=== PATIENT | male | born 1945 | race American Indian/Alaskan Native ===

== ENCOUNTER 2019-10-06 10:58 | Observation (INO) | payer MEDICARE ==
--- NOTE | 2019-10-06 11:26 | Emergency Department Report ---
ED GI Bleed HPI - General Chief complaint: GI Bleed Stated complaint: BLOOD IN STOOL Time Seen by Provider: 10/06/19 11:11 Source: patient Mode of arrival: Ambulatory Limitations: No Limitations - History of Present Illness Initial comments: Patient is a 74-year-old male presents emergency room with complaints of a GI bleed that began this morning around 10:30 AM. Patient states that he has had 3 episodes of bright red blood per rectum today. He states he has associated generalized weakness. He denies any diarrhea, abdominal pain, nausea, vomiting, chest pain, shortness of breath. Patient was evaluated in the emergency department in 2012 and had a GI bleed at that time secondary to diverticulosis and hemorrhoids. pt reports he has had no further bleeding episodes since 2012. he states his PCP started him on meloxicam and august secondary to arthritis in his neck. Patient has a past medical history of hypertension, hyperlipidemia, hypothyroid. he did not take his blood pressure medication today. - Related Data Home Medications Medication Instructions Recorded Confirmed Last Taken Levothyroxine [Synthroid] 137 mcg PO QAM 09/07/13 10/06/19 09/07/13 10:35 Simvastatin 20 mg PO QHS 09/07/13 10/06/19 09/06/13 Aspirin [Aspirin BABY CHEW TAB] 81 mg PO QDAY 10/06/19 10/06/19 Unknown Losartan [Cozaar] 50 mg PO QDAY 10/06/19 10/06/19 Unknown Allergies Allergy/AdvReac Type Severity Reaction Status Date / Time No Known Allergies Allergy Unverified 09/07/13 10:29 ED Review of Systems ROS: Stated complaint: BLOOD IN STOOL Other details as noted in HPI Comment: All other systems reviewed and negative ED Past Medical Hx - Past Medical History Hx Hypertension: Yes Hx Heart Attack/AMI: No Hx Congestive Heart Failure: No Hx Diabetes: No Hx Deep Vein Thrombosis: No Hx Pulmonary Embolism: No Hx Liver Disease: No Hx Renal Disease: No Hx Sickle Cell Disease: No Hx Arthritis: No Hx Seizures: No Hx Kidney Stones: No Hx Asthma: No Hx COPD: No Hx Tuberculosis: No Hx Dementia: No Hx HIV: No Additional medical history: Diverticulitis, THYROID - Surgical History Past Surgical History?: No Hx Coronary Stent: No Hx Pacemaker: No Hx Internal Defibrillator: No - Social History Smoking Status: Former Smoker Substance Use Type: None - Medications Home Medications: Home Medications Medication Instructions Recorded Confirmed Last Taken Type Levothyroxine [Synthroid] 137 mcg PO QAM 09/07/13 10/06/19 09/07/13 10:35 History Simvastatin 20 mg PO QHS 09/07/13 10/06/19 09/06/13 History Aspirin [Aspirin BABY CHEW TAB] 81 mg PO QDAY 10/06/19 10/06/19 Unknown History Losartan [Cozaar] 50 mg PO QDAY 10/06/19 10/06/19 Unknown History ED Physical Exam - General Limitations: No Limitations General appearance: alert, in no apparent distress - Head Head exam: Present: atraumatic, normocephalic - Eye Eye exam: Present: normal appearance - ENT ENT exam: Present: mucous membranes moist - Respiratory Respiratory exam: Present: normal lung sounds bilaterally. Absent: respiratory distress, wheezes, rales, rhonchi, stridor, chest wall tenderness, accessory muscle use, decreased breath sounds, prolonged expiratory - Cardiovascular Cardiovascular Exam: Present: regular rate, normal rhythm, normal heart sounds. Absent: systolic murmur, diastolic murmur, rubs, gallop - GI/Abdominal GI/Abdominal exam: Present: soft, normal bowel sounds. Absent: distended, tenderness, guarding, rebound, rigid - Rectal Rectal exam: Present: normal rectal tone, heme (+) stool, other (gross dark blood present, non thrombosed external hemorrhoid present ) - Neurological Exam Neurological exam: Present: alert, oriented X3 - Psychiatric Psychiatric exam: Present: normal affect, normal mood - Skin Skin exam: Present: warm, dry, intact ED Course Vital Signs 10/06/19 10/06/19 10/06/19 11:08 12:09 13:56 Temperature 98 F Pulse Rate 70 71 Respiratory 16 19 18 Rate Blood Pressure 165/66 Blood Pressure 123/91 [Right] O2 Sat by Pulse 97 98 Oximetry - Consultations Consultation #1: 10/06/19 13:[address] [facility] regarding pt and history, will consult on patient in the hospital. Consultation #2: 10/06/19 14:[address] Mcdowell, hospitalist who will admit pt to the hospital, will accept and resume care of patient, asked to write bridge orders to med surg ED Medical Decision Making - Lab Data Result diagrams: 10/06/19 11:51 10/06/19 11:51 Lab Results 10/06/19 10/06/19 10/06/19 Range/Units 11:51 11:51 11:51 WBC 3.6 L (4.5-11.0) K/mm3 RBC 4.35 (3.65-5.03) M/mm3 Hgb 13.4 (11.8-15.2) gm/dl Hct 40.1 (35.5-45.6) % MCV 92 (84-94) fl MCH 31 (28-32) pg MCHC 34 (32-34) % RDW 13.6 (13.2-15.2) % Plt Count 153 (140-440) K/mm3 Lymph % (Auto) 29.8 (13.4-35.0) % [place] % (Auto) 8.2 H (0.0-7.3) % Eos % (Auto) 1.0 (0.0-4.3) % Baso % (Auto) 0.6 (0.0-1.8) % Lymph # 1.1 L (1.2-5.4) K/mm3 [place] # 0.3 (0.0-0.8) K/mm3 Eos # 0.0 (0.0-0.4) K/mm3 Baso # 0.0 (0.0-0.1) K/mm3 Seg Neutrophils % 60.4 (40.0-70.0) % Seg Neutrophils # 2.2 (1.8-7.7) K/mm3 PT 15.2 H (12.2-14.9) Sec. INR 1.21 H (0.87-1.13) APTT 31.6 (24.2-36.6) Sec. Sodium 139 (137-145) mmol/L Potassium 4.1 (3.6-5.0) mmol/L Chloride 106.9 (98-107) mmol/L Carbon Dioxide 21 L (22-30) mmol/L Anion Gap 15 mmol/L BUN 17 (9-20) mg/dL Creatinine 0.7 L (0.8-1.5) mg/dL Estimated GFR > 60 ml/min BUN/Creatinine Ratio 24 % Glucose 111 H (75-100) mg/dL Calcium 8.9 (8.4-10.2) mg/dL Total Bilirubin 0.20 (0.1-1.2) mg/dL AST 20 (5-40) units/L ALT 19 (7-56) units/L Alkaline Phosphatase 68 (35-129) units/L Total Protein 6.6 (6.3-8.2) g/dL Albumin 3.8 L (3.9-5) g/dL Albumin/Globulin Ratio 1.4 % Blood Type Antibody Screen 10/06/19 Range/Units 11:51 WBC (4.5-11.0) K/mm3 RBC (3.65-5.03) M/mm3 Hgb (11.8-15.2) gm/dl Hct (35.5-45.6) % MCV (84-94) fl MCH (28-32) pg MCHC (32-34) % RDW (13.2-15.2) % Plt Count (140-440) K/mm3 Lymph % (Auto) (13.4-35.0) % [place] % (Auto) (0.0-7.3) % Eos % (Auto) (0.0-4.3) % Baso % (Auto) (0.0-1.8) % Lymph # (1.2-5.4) K/mm3 [place] # (0.0-0.8) K/mm3 Eos # (0.0-0.4) K/mm3 Baso # (0.0-0.1) K/mm3 Seg Neutrophils % (40.0-70.0) % Seg Neutrophils # (1.8-7.7) K/mm3 PT (12.2-14.9) Sec. INR (0.87-1.13) APTT (24.2-36.6) Sec. Sodium (137-145) mmol/L Potassium (3.6-5.0) mmol/L Chloride (98-107) mmol/L Carbon Dioxide (22-30) mmol/L Anion Gap mmol/L BUN (9-20) mg/dL Creatinine (0.8-1.5) mg/dL Estimated GFR ml/min BUN/Creatinine Ratio % Glucose (75-100) mg/dL Calcium (8.4-10.2) mg/dL Total Bilirubin (0.1-1.2) mg/dL AST (5-40) units/L ALT (7-56) units/L Alkaline Phosphatase (35-129) units/L Total Protein (6.3-8.2) g/dL Albumin (3.9-5) g/dL Albumin/Globulin Ratio % Blood Type O POSITIVE Antibody Screen Negative - Medical Decision Making Patient is a 74-year-old male presents emergency room with complaints of a GI bleed that began this morning around 10:30 AM. Patient states that he has had 3 episodes of bright red blood per rectum today. He states he has associated generalized weakness. He denies any diarrhea, abdominal pain, nausea, vomiting, chest pain, shortness of breath. Patient was evaluated in the emergency department in 2012 and had a GI bleed at that time secondary to diverticulosis and hemorrhoids. pt reports he has had no further bleeding episodes since 2012. he states his PCP started him on meloxicam and august secondary to arthritis in his neck. Patient has a past medical history of hypertension, hyperlipidemia, hypothyroid. he did not take his blood pressure medication today. Vitals are stable. Labs are stable. H&H is normal. No abdominal tenderness on exam, on rectal exam there is gross dark blood present and an non thrombosed external hemorrhoid. secondary to patient hx of diverticulosis bleed and gross blood on exam. spoke with Dr[facility] regarding pt and history, will consult on patient in the hospital. spoke to Dr. Mcdowell, hospitalist who will admit pt to the hospital, will accept and resume care of patient, asked to write bridge orders to med surg. pt admitted to the hospital - Differential Diagnosis diverticulosis, diverticulitis, hemorrhoids, varices, bleeding disorder Critical care attestation.: If time is entered above; I have spent that time in minutes in the direct care of this critically ill patient, excluding procedure time. ED Disposition Clinical Impression: Lower GI bleed Disposition: OP ADMIT IP TO THIS HOSP Is pt being admited?: Yes Does the pt Need Aspirin: No Condition: Stable
[2019-10-06 12:17] LABS: Basophils % (Auto) 0.6 % (0.0-1.8); Hematocrit 40.1 % (35.5-45.6); Hemoglobin 13.4 gm/dl (11.8-15.2); Lymphocytes # (Auto) 1.1 K/mm3 (1.2-5.4); Lymphocytes % (Auto) 29.8 % (13.4-35.0); Mean Corpuscular HGB Conc 34 % (32-34); Mean Corpuscular Volume 92 fl (84-94); Monocytes # (Auto) 0.3 K/mm3 (0.0-0.8); Monocytes % (Auto) 8.2 % (0.0-7.3); Platelet Count 153 K/mm3 (140-440); Red Blood Count 4.35 M/mm3 (3.65-5.03); Red Cell Distribution Width 13.6 % (13.2-15.2)
[2019-10-06 12:24] LABS: INR 1.21 (0.87-1.13)
[2019-10-06 12:26] LABS: Partial Thromboplastin Time 31.6 Sec. (24.2-36.6)
[2019-10-06 12:27] LABS: Alanine Aminotransferase 19 units/L (7-56); BUN/Creatinine Ratio 24; Blood Urea Nitrogen 17 mg/dL (9-20); Calcium 8.9 mg/dL (8.4-10.2)
[2019-10-06 12:28] LABS: Albumin 3.8 g/dL (3.9-5); Hemolysis Index 7
[2019-10-06] MEDS ORDERED: SODIUM CHLORIDE 0.9% 1000 ML 1,000 ML IV ONE (14:00)
--- NOTE | 2019-10-06 18:35 | Gastroenterology Consultation ---
History of Present Illness - Reason for Consult Consult date: 10/06/19 GI bleed Requesting physician: JENNIFER PARIKH - History of Present Illness This is a 74 yo male with HTN, HLD, and prior h/o GI bleed in 2013 admitted for rectal bleeding x 1 day. He reports having new onset of bright red blood per rectum x 3 episodes this morning. No additional episode since this morning. No abdominal pain, nausea/vomiting, fever/chills, or weight loss. He has been taking meloxicam daily for arthritis. Of note, he was admitted in 2013 for GI bleed and EGD/colonoscopy were done. EGD were unremarkable. Colonoscopy showed diverticulosis and internal hemorrhoids. Bleeding was thought to be due to diverticular bleeding. No colonoscopy done since then. medication list reviewed. Past History Past Medical History: arthritis, hypertension, hyperlipidemia Past Surgical History: No surgical history Social history: full code Family history: other (no history of CRC) Medications and Allergies Allergies Allergy/AdvReac Type Severity Reaction Status Date / Time No Known Allergies Allergy Unverified 09/07/13 10:29 Home Medications Medication Instructions Recorded Confirmed Last Taken Type Levothyroxine [Synthroid] 137 mcg PO QAM 09/07/13 10/06/19 09/07/13 10:35 History Simvastatin 20 mg PO QHS 09/07/13 10/06/19 09/06/13 History Aspirin [Aspirin BABY CHEW TAB] 81 mg PO QDAY 10/06/19 10/06/19 Unknown History Losartan [Cozaar] 50 mg PO QDAY 10/06/19 10/06/19 Unknown History Active Meds: Active Medications Bisacodyl (Dulcolax) 10 mg PO ONCE ONE Stop: 10/06/19 20:01 Polyethylene Glycol/Electrolytes (Golytely) 4,000 ml PO ONCE ONE Stop: 10/06/19 18:30 Review of Systems - Review of Systems All systems: negative Constitutional: no weight loss, no weight gain Cardiovascular: no chest pain, no edema Respiratory: no cough, no shortness of breath Gastrointestinal: BRBPR, no abdominal pain, no nausea, no vomiting, no diarrhea, no constipation, no melena Psychiatric: no anxiety Exam - Constitutional Vital Signs: Temp Pulse Resp BP Pulse Ox 98.1 F 78 18 153/96 97 10/06/19 16:36 10/06/19 16:36 10/06/19 17:16 10/06/19 16:36 10/06/19 17:16 General appearance: no acute distress, well-nourished - EENT ENT: hearing intact - Neck Neck: supple, normal ROM, no masses or JVD - Respiratory Respiratory effort: normal - Cardiovascular Rhythm: regular Heart Sounds: Present: S1 & S2. Absent: gallop, rub - Gastrointestinal General gastrointestinal: Present: soft, non-tender, non-distended, normal bowel sounds - Integumentary Integumentary: Present: clear, warm - Neurologic Neurological: alert and oriented x3 - Labs CBC & Chem 7: 10/06/19 11:51 10/06/19 11:51 Lab Results: Laboratory Results - last 24 hr 10/06/19 10/06/19 10/06/19 11:51 11:51 11:51 WBC 3.6 L RBC 4.35 Hgb 13.4 Hct 40.1 MCV 92 MCH 31 MCHC 34 RDW 13.6 Plt Count 153 Lymph % (Auto) 29.8 [place] % (Auto) 8.2 H Eos % (Auto) 1.0 Baso % (Auto) 0.6 Lymph # 1.1 L [place] # 0.3 Eos # 0.0 Baso # 0.0 Seg Neutrophils % 60.4 Seg Neutrophils # 2.2 PT 15.2 H INR 1.21 H APTT 31.6 Sodium 139 Potassium 4.1 Chloride 106.9 Carbon Dioxide 21 L Anion Gap 15 BUN 17 Creatinine 0.7 L Estimated GFR > 60 BUN/Creatinine Ratio 24 Glucose 111 H Calcium 8.9 Total Bilirubin 0.20 AST 20 ALT 19 Alkaline Phosphatase 68 Total Protein 6.6 Albumin 3.8 L Albumin/Globulin Ratio 1.4 Blood Type Antibody Screen 10/06/19 11:51 WBC RBC Hgb Hct MCV MCH MCHC RDW Plt Count Lymph % (Auto) [place] % (Auto) Eos % (Auto) Baso % (Auto) Lymph # [place] # Eos # Baso # Seg Neutrophils % Seg Neutrophils # PT INR APTT Sodium Potassium Chloride Carbon Dioxide Anion Gap BUN Creatinine Estimated GFR BUN/Creatinine Ratio Glucose Calcium Total Bilirubin AST ALT Alkaline Phosphatase Total Protein Albumin Albumin/Globulin Ratio Blood Type O POSITIVE Antibody Screen Negative Assessment and Plan # BRBPR - ddx including diverticular bleed vs hemorrhoids vs malignancy (less likely) - HD stable. - Hgb at 13. Rec - will plan for colonoscopy tomorrow. - clear liquid diet and NPO MN. - Golytely prep. - monitor H/H.
[2019-10-06] MEDS ORDERED: POLYETHYLENE GLYCOL/ELECT SOLN 4000 ML PO ONE (19:29)
--- NOTE | 2019-10-06 23:05 | History and Physical Report ---
History of Present Illness Date of examination: 10/06/19 Date of admission: 10/06/19 14:37 Chief complaint: Lower GI bleed since 10:30 AM History of present illness: 74-year-old male with history of hypertension, hyperlipidemia and hypothyroidism comes in for bright red blood per rectum since 10:30 in the morning. Patient had 3 episodes of bright red blood per rectum today. Feels weak and lightheaded. No abdominal pain. No nausea vomiting. No hematemesis. Patient has similar GI bleed in 2012 and was diagnosed with diverticulosis. And also hemorrhoids. No NSAIDS were taken. No BC borders or aspirinor Goody powders taken. Past Medical History Hypertension Hypothyroidism Hyperlipidemia Surgical History No Social History Smoking Status: Former Smoker Substance Use Type: None Family History Htn -Medications Home Medications: Home Medications Medication Instructions Recorded Confirmed Last Taken Type Levothyroxine [Synthroid] 137 mcg PO QAM 09/07/13 10/06/19 09/07/13 10:35 History Simvastatin 20 mg PO QHS 09/07/13 10/06/19 09/06/13 History Aspirin [Aspirin BABY CHEW TAB] 81 mg PO QDAY 10/06/19 10/06/19 Unknown History Losartan [Cozaar] 50 mg PO QDAY 10/06/19 10/06/19 Unknown History Review of Systems ROS: Stated complaint: BLOOD IN STOOL Other details as noted in HPI Comment: All other systems reviewed and negative Past History Past Medical History: arthritis, hypertension, hyperlipidemia Past Surgical History: No surgical history Social history: full code Family history: other (no history of CRC) Medications and Allergies Allergies Allergy/AdvReac Type Severity Reaction Status Date / Time No Known Allergies Allergy Unverified 09/07/13 10:29 Home Medications Medication Instructions Recorded Confirmed Last Taken Type Levothyroxine [Synthroid] 137 mcg PO QAM 09/07/13 10/06/19 09/07/13 10:35 History Simvastatin 20 mg PO QHS 09/07/13 10/06/19 09/06/13 History Aspirin [Aspirin BABY CHEW TAB] 81 mg PO QDAY 10/06/19 10/06/19 Unknown History Losartan [Cozaar] 50 mg PO QDAY 10/06/19 10/06/19 Unknown History Exam - Constitutional Vitals: Temp Pulse Resp BP Pulse Ox 98.3 F 74 18 123/92 97 10/06/19 19:43 10/06/19 19:43 10/06/19 19:43 10/06/19 19:43 10/06/19 19:43 General appearance: Present: no acute distress, well-nourished - EENT Eyes: Present: PERRL ENT: hearing intact, clear oral mucosa - Neck Neck: Present: supple, normal ROM - Respiratory Respiratory effort: normal Respiratory: bilateral: CTA - Cardiovascular Heart rate: 98 Rhythm: regular Heart Sounds: Present: S1 & S2. Absent: rub, click - Extremities Extremities: no ischemia, pulses intact, pulses symmetrical, No edema Peripheral Pulses: within normal limits - Abdominal General gastrointestinal: Present: soft, non-tender, non-distended, normal bowel sounds Male genitourinary: Present: normal - Rectal Rectal Exam: stool bloody - Integumentary Integumentary: Present: clear, warm, dry - Musculoskeletal Musculoskeletal: gait normal, strength equal bilaterally - Psychiatric Psychiatric: appropriate mood/affect, intact judgment & insight - Neurologic Neurologic: CNII-XII intact, moves all extremities - Allied Health Allied health notes reviewed: nursing, case management Results - Labs CBC & Chem 7: 10/06/19 11:51 10/06/19 11:51 Labs: Laboratory Last Values WBC 3.6 K/mm3 (4.5-11.0) L 10/06/19 11:51 RBC 4.35 M/mm3 (3.65-5.03) 10/06/19 11:51 Hgb 13.4 gm/dl (11.8-15.2) 10/06/19 11:51 Hct 40.1 % (35.5-45.6) 10/06/19 11:51 MCV 92 fl (84-94) 10/06/19 11:51 MCH 31 pg (28-32) 10/06/19 11:51 MCHC 34 % (32-34) 10/06/19 11:51 RDW 13.6 % (13.2-15.2) 10/06/19 11:51 Plt Count 153 K/mm3 (140-440) 10/06/19 11:51 Lymph % (Auto) 29.8 % (13.4-35.0) 10/06/19 11:51 [place] % (Auto) 8.2 % (0.0-7.3) H 10/06/19 11:51 Eos % (Auto) 1.0 % (0.0-4.3) 10/06/19 11:51 Baso % (Auto) 0.6 % (0.0-1.8) 10/06/19 11:51 Lymph # 1.1 K/mm3 (1.2-5.4) L 10/06/19 11:51 [place] # 0.3 K/mm3 (0.0-0.8) 10/06/19 11:51 Eos # 0.0 K/mm3 (0.0-0.4) 10/06/19 11:51 Baso # 0.0 K/mm3 (0.0-0.1) 10/06/19 11:51 Seg Neutrophils % 60.4 % (40.0-70.0) 10/06/19 11:51 Seg Neutrophils # 2.2 K/mm3 (1.8-7.7) 10/06/19 11:51 PT 15.2 Sec. (12.2-14.9) H 10/06/19 11:51 INR 1.21 (0.87-1.13) H 10/06/19 11:51 APTT 31.6 Sec. (24.2-36.6) 10/06/19 11:51 Sodium 139 mmol/L (137-145) 10/06/19 11:51 Potassium 4.1 mmol/L (3.6-5.0) 10/06/19 11:51 Chloride 106.9 mmol/L (98-107) 10/06/19 11:51 Carbon Dioxide 21 mmol/L (22-30) L 10/06/19 11:51 Anion Gap 15 mmol/L 10/06/19 11:51 BUN 17 mg/dL (9-20) 10/06/19 11:51 Creatinine 0.7 mg/dL (0.8-1.5) L 10/06/19 11:51 Estimated GFR > 60 ml/min 10/06/19 11:51 BUN/Creatinine Ratio 24 % 10/06/19 11:51 Glucose 111 mg/dL (75-100) H 10/06/19 11:51 Calcium 8.9 mg/dL (8.4-10.2) 10/06/19 11:51 Total Bilirubin 0.20 mg/dL (0.1-1.2) 10/06/19 11:51 AST 20 units/L (5-40) 10/06/19 11:51 ALT 19 units/L (7-56) 10/06/19 11:51 Alkaline Phosphatase 68 units/L (35-129) 10/06/19 11:51 Total Protein 6.6 g/dL (6.3-8.2) 10/06/19 11:51 Albumin 3.8 g/dL (3.9-5) L 10/06/19 11:51 Albumin/Globulin Ratio 1.4 % 10/06/19 11:51 Blood Type O POSITIVE 10/06/19 11:51 Antibody Screen Negative 10/06/19 11:51 Short CBC 10/06/19 Range/Units 11:51 WBC 3.6 L (4.5-11.0) K/mm3 Hgb 13.4 (11.8-15.2) gm/dl Hct 40.1 (35.5-45.6) % Plt Count 153 (140-440) K/mm3 BMP 10/06/19 11:51 Sodium 139 Potassium 4.1 Chloride 106.9 Carbon Dioxide 21 L BUN 17 Creatinine 0.7 L Glucose 111 H Calcium 8.9 Liver Function 10/06/19 Range/Units 11:51 Total Bilirubin 0.20 (0.1-1.2) mg/dL AST 20 (5-40) units/L ALT 19 (7-56) units/L Alkaline Phosphatase 68 (35-129) units/L Albumin 3.8 L (3.9-5) g/dL Assessment and Plan Advance Directives: Yes (full code) VTE prophylaxis?: Mechanical Plan of care discussed with patient/family: Yes - Patient Problems (1) Lower GI bleed Current Visit: Yes Status: Acute Plan to address problem: Monitor hemoglobin and hematocrit every 8 hours GI consult For colonoscopy in the morning Possible diverticulosis because of the diverticular bleed in 2013 Transfusion if necessary (2) Hypertension Current Visit: Yes Status: Chronic Qualifiers: Hypertension type: essential hypertension Qualified Code(s): I10 - Essential (primary) hypertension Plan to address problem: Continue antihypertensives (3) Hypothyroidism (acquired) Current Visit: Yes Status: Chronic Plan to address problem: Continue Synthroid Check TSH (4) Hyperlipidemia Current Visit: Yes Status: Chronic Qualifiers: Hyperlipidemia type: mixed hyperlipidemia Qualified Code(s): E78.2 - Mixed hyperlipidemia Plan to address problem: Continue statins (5) DVT prophylaxis Current Visit: Yes Status: Acute Plan to address problem: SCDs for now and patient on Protonix
[2019-10-06] MEDS ORDERED: LEVOTHYROXINE 112 MCG TAB PO SCH (23:30)
[2019-10-07 04:21] LABS: Hematocrit 38.6 % (35.5-45.6); Hemoglobin 12.7 gm/dl (11.8-15.2)
[2019-10-07] MEDS ORDERED: LEVOTHYROXINE 25 MCG TAB PO SCH (06:00)
[2019-10-07] MEDS ORDERED: LEVOTHYROXINE 112 MCG TAB PO SCH ×2 (06:00→10:00)
[2019-10-07 08:49] LABS: Hemoglobin 13.3 gm/dl (11.8-15.2)
[2019-10-07] MEDS ORDERED: LIDOCAINE MPF (2%) 20 MG/1 ML VIAL 5 ML ONE (10:00)
[2019-10-07] MEDS: LOSARTAN 50 MG TAB PO SCH (10:35)
[2019-10-07] MEDS: D5W/0.9% NACL 1,000 ML IV SCH (10:37)
[2019-10-07] MEDS: PANTOPRAZOLE 40 MG INJ IV SCH ×2 (10:37→22:00)
[2019-10-07] MEDS ORDERED: SODIUM CHLORIDE 0.9% 1000 ML 1,000 ML IV SCH (13:00)
[2019-10-07] MEDS ORDERED: PROPOFOL 200 MG/20 ML VIAL IV ONE (13:16)
[2019-10-07] MEDS ORDERED: SODIUM CHLORIDE 0.9% 1000 ML 1,000 ML ONE (13:32)
--- NOTE | 2019-10-07 13:34 | Progress Note ---
Assessment and Plan /Lower GI bleed cont to Monitor hemoglobin and hematocrit every 8 hours GI consulted For colonoscopy today Possible diverticulosis because of the diverticular bleed in 2012 Transfusion if necessary / Hypertension Continue antihypertensives / Hypothyroidism (acquired) Continue Synthroid Check TSH / Hyperlipidemia Continue statins / DVT prophylaxis SCDs for now and patient on Protonix Subjective Date of service: 10/07/19 Interval history: Patient seen and examined. Medical records and medication list reviewed. No acute event overnight noted by the RN. Patient denies any chest pain or difficulty breathing. No further active GI bleed Plan for EGD and colonoscopy today Discussed plan of care at bedside with patient. Objective - Exam Narrative Exam: GENERAL: well-developed elderly male lying on bed appeared to be in no discomfort. HEENT: Normocephalic. Atraumatic. No conjunctival congestion or icterus. Patient has moist mucous membranes. NECK: Supple. Trachea midline. CHEST/LUNGS: Clear to auscultated bilaterally, breathing nonlabored. No wheezes crackles or rhonchi. HEART/CARDIOVASCULAR: Regular in rate and rhythm. S1 and S2 positive. ABDOMEN: Abdomen is soft, nontender. Patient has normal bowel sounds. SKIN: There is no rash. Warm and dry. NEURO: No focal motor deficit. Follows command. MUSCULOSKELETAL: No joint effusion or tenderness. EXTRIMITY: No edema, no cyanosis or clubbing. PSYCH: Cooperative. - Constitutional Vitals: Vital Signs - 12hr 10/07/19 10/07/19 10/07/19 02:11 07:23 08:28 Temperature 98.5 F 97.9 F Pulse Rate 71 61 Respiratory 18 18 20 Rate Blood Pressure 126/81 120/90 O2 Sat by Pulse 95 97 Oximetry - Labs CBC & Chem 7: 10/08/19 11:21 10/06/19 11:51
[2019-10-07] MEDS ORDERED: WATER FOR IRRIG STERILE 250 ML BOTTLE IR ONE (14:54)
--- NOTE | 2019-10-07 15:20 | Operative Report ---
Operative Report Operative Report: DOS: 10/07/2019 SURGEON: Praneeth Lynn MD COLONOSCOPY with biopsy REPORT PREOPERATIVE AND POSTOPERATIVE DIAGNOSIS: rectal bleeding DESCRIPTION OF PROCEDURE: The colonoscope was passed to the cecum as identified by the ileocecal valve and appendiceal orifice. Scope was carefully withdrawn. Retroflexion was performed in the rectum. At the end of procedure, the scope was cleaned using normal technique. Vital signs monitored continuously throughout. SEDATION: Provided by Anest[facility]iology [facility]. Quality of the prep was fair COMPLICATIONS: None. ESTIMATED BLOOD LOSS: none FINDINGS: * Scattered diverticula throughout the colon, worse in the sigmoid colon. No particular diverticulum with bleeding signs noted. * Prominent IVC noted and biopsies obtained. * Normal appearing terminal ileum without any blood. * A diminutive sessile polyp in the sigmoid colon removed with cold forcep completely and retrieved. * Mild internal hemorrhoids on retroflexion view * Moderate to severe diverticulosis of the entire colon * Remainder of the exam was normal RECOMMENDATIONS: * Source of rectal bleeding likely due to diverticular bleeding, which has now stopped. * Hgb stable * Therefore ok for discharge with outpatient follow up. * Regarding CRC screening, the quality of the colon cleanse was limited and therefore would not be adequate to rule out small or flat polyps. Recommend repeat colonoscopy within 1 year.
--- NOTE | 2019-10-07 15:26 | Anesthesia Consultation ---
Anesthesia Consult and Med Hx Date of service: 10/07/19 - Airway Anesthetic Teeth Evaluation: Dentures ROM Head & Neck: Adequate Mental/Hyoid Distance: Adequate Mallampati Class: Class III Intubation Access Assessment: Possibly Difficult - Pulmonary Exam CTA: Yes - Cardiac Exam Cardiac Exam: RRR - Pre-Operative Health Status ASA Pre-Surgery Classification: ASA3 Proposed Anesthetic Plan: MAC - Pulmonary Hx Respiratory Symptoms: No - Cardiovascular System Hx Hypertension: Yes Hx Heart Attack/AMI: No Hx Percutaneous Transluminal Coronary Angioplasty (PTCA): No - Central Nervous System CVA: No - Gastrointestinal Hx Gastroesophageal Reflux Disease: No - Endocrine Hx Renal Disease: No Hx Liver Disease: No Hx Insulin Dependent Diabetes: No Hx Non-Insulin Dependent Diabetes: No Hx Hypothyroidism: Yes - Other Systems Hx Obesity: No - Additional Comments Anesthesia Medical History Comments: No hx anesthetic complications. Hx diverticulosis presenting with BRBPR.
--- NOTE | 2019-10-07 15:26 | Anesthesia Day of Surgery ---
Anesthesia Day of Surgery - Day of Surgery Patient Examined: Yes Patient H&P Reviewed: Yes Patient is NPO: Yes
--- NOTE | 2019-10-07 15:47 | Post Anesthesia Evaluation ---
- Post Anesthesia Evaluation Patient Participated: Yes Airway Patent: Yes Stable Respiratory Function: Yes Nausea/Vomiting: No Temp > 96.8F: Yes Pain Manageable: Yes Adequeate Hydration: Yes Anesthesia Complications: No
[2019-10-07 20:35] LABS: Hematocrit 38.7 % (35.5-45.6); Hemoglobin 12.7 gm/dl (11.8-15.2)
[2019-10-07] MEDS ORDERED: NON-FORMULARY EACH (Simvastatin [Simvastatin] 20 MG) PO SCH (22:00)
[2019-10-07] MEDS ORDERED: PRAVASTATIN 40 MG TAB PO SCH (22:00)
[2019-10-08] MEDS ORDERED: PANTOPRAZOLE 40 MG TAB PO SCH (10:00)
[2019-10-08] MEDS: LOSARTAN 50 MG TAB PO SCH (10:11)
[2019-10-08 10:14] VITALS: BP 140/84
[2019-10-08] MEDS: D5W/0.9% NACL 1,000 ML IV SCH (10:17)
--- NOTE | 2019-10-08 11:29 | Discharge Summary ---
Providers - Providers Date of Admission: 10/06/19 14:37 Date of discharge: 10/08/19 Attending physician: TRACE HERNANDEZ 10/06/19 13:57 Consult to Physician [CONS] Stat Comment: Consulting Provider: PANCHO SEGURA Physician Instructions: Reason For Exam: GI bleed 10/07/19 08:42 Physical Therapy Evaluation and Treat [CONS] Routine Comment: Reason For Exam: Weakness Hospitalization Condition: Stable Procedures: Colonoscopy: Findings * Scattered diverticula throughout the colon, worse in the sigmoid colon. No particular diverticulum with bleeding signs noted. * Prominent IVC noted and biopsies obtained. * Normal appearing terminal ileum without any blood. * A diminutive sessile polyp in the sigmoid colon removed with cold forcep completely and retrieved. * Mild internal hemorrhoids on retroflexion view * Moderate to severe diverticulosis of the entire colon * Remainder of the exam was normal GI RECOMMENDATIONS: * Source of rectal bleeding likely due to diverticular bleeding, which has now stopped. * Hgb stable * Therefore ok for discharge with outpatient follow up. * Regarding CRC screening, the quality of the colon cleanse was limited and therefore would not be adequate to rule out small or flat polyps. Recommend repeat colonoscopy within 1 year. Hospital course: This is a 74 yo male with HTN, HLD, and prior h/o GI bleed in 2013 admitted for rectal bleeding x 1 day. He reported having new onset of bright red blood per rectum x 3 episodes w/o any additional episode. Of note, he was admitted in 2013 for GI bleed and EGD/colonoscopy were done. EGD were unremarkable. Colonoscopy showed diverticulosis and internal hemorrhoids. Bleeding was thought to be due to diverticular bleeding. No colonoscopy done since then. Patient was admitted to the hospital for further evaluation and management. His H&H was monitored, GI was consulted, colonoscopy was done which showed possible diverticular bleed which has stopped. Patient was started on diet and he was tolerating. Monitor closely and no active GI bleeding occurred during his hospital stay. Patient was then discharged home in stable condition with outpatient GI follow-up. Patient was recommended to have repeat colonoscopy in one year. Patient verbalized understanding on and was discharged home in stable condition. Discharge diagnosis: (1) Lower GI bleed to diverticulosis s/p colonoscopy (2) Hypertension, stable (3) Hypothyroidism (acquired), TSH 2.4 (4) Hyperlipidemia, continue statin Disposition: AR-01 TO HOME OR SELFCARE Time spent for discharge: 34 minutes Core Measure Documentation - Palliative Care Palliative Care/ Comfort Measures: Not Applicable - Core Measures Any of the following diagnoses?: none Exam - Physical Exam Narrative exam: GENERAL: Elderly male lying on bed appeared to be in no discomfort. HEENT: Normocephalic. Atraumatic. No conjunctival congestion or icterus. Patient has moist mucous membranes. NECK: Supple. Trachea midline. CHEST/LUNGS: Clear to auscultated bilaterally, breathing nonlabored. No wheezes crackles or rhonchi. HEART/CARDIOVASCULAR: Regular in rate and rhythm. S1 and S2 positive. ABDOMEN: Abdomen is soft, nontender. Patient has normal bowel sounds. SKIN: There is no rash. Warm and dry. NEURO: No focal motor deficit. Follows command. MUSCULOSKELETAL: No joint effusion or tenderness. EXTRIMITY: No edema, no cyanosis or clubbing. PSYCH: Cooperative. - Constitutional Vitals: Temp Pulse Resp BP Pulse Ox 97.8 F 74 19 140/84 98 10/08/19 07:55 10/08/19 10:11 10/08/19 07:55 10/08/19 10:11 10/08/19 07:55 Plan Activity: advance as tolerated Weight Bearing Status: Weight Bear as Tolerated Diet: advance as tolerated Follow up with: PANCHO SEGURA MD [Staff Physician] - 7 Days [place] NATALIE MORA MD [Referring] - 3-5 Days Forms: Accompanied Note
[2019-10-08 11:42] LABS: Hematocrit 37.6 % (35.5-45.6); Hemoglobin 12.5 gm/dl (11.8-15.2)
== END 2019-10-08 14:30 | disposition home or self-care (01) ==
LOC: ED 10:58 → 2B-ACE 14:37 → INTOOBSV 14:37
PROVIDERS: ADMIT Internal Medicine; ATTEND Internal Medicine
DX: K92.2 Gastrointestinal hemorrhage, unspecified (principal); I10 Essential (primary) hypertension; E03.9 Hypothyroidism, unspecified; E78.5 Hyperlipidemia, unspecified; Z87.891 Personal history of nicotine dependence; Z79.82 Long term (current) use of aspirin
CPT/HCPCS: 36415; 45380; 80053; 82271; 84443; 85014; 85018; 85025; 85610; 85730; 86850; 86900; 86901; 88305; 96374; 96376; 97161; 99284; A9270; C9113; G0378; J2704; J7030; J7042; 96360